=== PATIENT | female | born 1975 | race American Indian/Alaskan Native ===

== ENCOUNTER 2019-12-24 22:30 | Emergency (ER) | payer BC ==
[2019-12-24 22:38] VITALS: BP 152/95
--- NOTE | 2019-12-24 23:36 | Emergency Department Report ---
Chief Complaint: Skin Rash Stated Complaint: RASH Time Seen by Provider: 12/24/19 23:33 - HPI History of Present Illness: 44-year-old -[place] female presents to the emergency room complaining of a rash that itches for several days. Patient is unsure of what could have caused this rash. Patient does have a primary care provider but has not seen them recently. Patient does have an allergy to penicillin and seafood and admits that she had fried some fish but did not eat it. Patient denies any shortness of breathing chest pain difficulty swallowing or difficulty breathing. - Exam Vital Signs: Vital Signs 12/24/19 22:33 Temperature 98.2 F Pulse Rate 92 H Respiratory 16 Rate Blood Pressure 152/95 O2 Sat by Pulse 98 Oximetry Physical Exam: Patient is alert and oriented x3 no acute distress nontoxic in appearance Skin no urticaria 1 patch that appears to have raised borders and hyper per pigmented and 2 small lesions to the back that is hyperpigmented dark nontender no swelling no erythematous no drainage. MSE screening note: Focused history and physical exam performed. Due to findings the following was ordered: 44-year-old -[place] female presents to the emergency room complaining of a rash that itches for several days. Patient is unsure of what could have caused this rash. Patient does have a primary care provider but has not seen them recently. Patient does have an allergy to penicillin and seafood and admits that she had fried some fish but did not eat it. Patient denies any shortness of breathing chest pain difficulty swallowing or difficulty breathing. ED Disposition for MSE Disposition: Z- MED SCREENING EXAM-LEFT Is pt being admited?: No Does the pt Need Aspirin: No Condition: Stable Additional Instructions: Follow-up with a provider I have listed 1 below for your convenience Referrals: GIOVANNI SCHMITT MD [Staff Physician] - 3-5 Days
== END 2019-12-25 | disposition left against medical advice (07) ==
LOC: ED 22:30
DX: R21 Rash and other nonspecific skin eruption (principal); Z53.21 Procedure and treatment not carried out due to patient leaving prior to being seen by health care provider